=== PATIENT | male | born 1975 | race Caucasian/White ===

== ENCOUNTER 2022-08-19 20:05 | Emergency (ER) | payer OTHER ==
[~2022-08-19] VITALS: Ht 182.9 cm; Wt 87.5 kg
[2022-08-19 20:46] VITALS: BP 149/89
--- NOTE | 2022-08-19 21:17 | NUR ---
PT IS MEDICALLY CLEARAED FOR BOOKING AND RELEASED UNDER THE CARE OF [employer] OFFICERS. PT IS IN STABLE CONDITION. AMBULATORY ON STEADYGAIT AND LEFT ON HAND CUFFS
== END 2022-08-19 21:18 ==
LOC: ER 20:17
DX: Z02.89 Encounter for other administrative examinations (principal); M54.50 Low back pain, unspecified; Z88.8 Allergy status to other drugs, medicaments and biological substances